=== PATIENT | male | born 1985 | race Caucasian/White ===

== ENCOUNTER → 2023-07-31 15:37 | Outpatient (CLI) | payer BC, SELFPAY ==
--- NOTE | ~2023-07-31 | CT_ITS ---
EXAMINATION: CT sinus wo con DATE: 07/31/2023 15:56 INDICATION: TECHNIQUE: Computed tomography (CT) of the paranasal sinuses was performed without intravenous contra st. The dose-length product (DLP) was 271.16 mGy-cm. Iterative reconstruction was used. COMPARISON: None FINDINGS: Mild leftward bowing with small osseous spur off the anterior osseous nasal septum. Mild ri ghtward bowing of the posterior osseous septum. Mild mucosal thickening in the inferior maxillary sin uses and the anterior ethmoid sinuses. Incomplete ossification of the anterior wall of the left front al, likely postsurgical/post procedural change. The left frontal sinus is small, mostly opacified, an d surrounded by sclerotic bone. The bilateral ostiomeatal complexes are patent. Visualized soft tissu es are unremarkable. IMPRESSION: Chronic left frontal sinusitis and postsurgical/postprocedural change. Mild mucoperiosteal disease in the bilateral maxillary sinuses and anterior ethmoid sinuses. Reviewed, dictated and finalized at location [facility]. AGE [employer] IMPRESSION: Chronic left frontal sinusitis and postsurgical/postprocedural change. Mild mucoperiosteal disease in the bilateral maxillary sinuses and anterior eth moid sinuses.
== END ==
PROVIDERS: PCP Otolaryngology; Visit Provider Otolaryngology
DX: J32.4 Chronic pansinusitis (principal)
CPT/HCPCS: 70486

== ENCOUNTER 2024-05-14 16:09 | Outpatient (CLI) | payer BC, SELFPAY ==
--- NOTE | 2024-05-19 13:28 | WPDHOLTEREM ---
Holter/Event Monitor Holter/Event Monitor Date of procedure: 05/14/24 Holter/Event Procedure: 48 Hr Holter Monitor Indications: Palpitations Conclusion: 1. 48 hour holter monitor on 05/14/24. 2. Underlying rhythm is sinus rhythm. HR range 58-130 bpm; average 88 bpm. 3. There are 11,075 premature supraventricular complexes, 121 supraventricular couplets, 1 supraventricular triplet, 9 supraventricular bigeminy and 2,274 supraventricular trigeminy. No supraventricular tachycardia. 4. There are 49 premature ventricular complexes. No ventricular tachycardia. 5. No sinoatrial or atrioventricular blocks. No significant pauses greater than 2 seconds. 6. No symptoms available for correlation.
== END 2024-05-14 16:10 | disposition home or self-care (01) ==
LOC: CHSCARD 16:10
PROVIDERS: PCP Registered Nurse; Visit Provider Family Medicine
DX: R00.2 Palpitations (principal)
CPT/HCPCS: 93225; 93226